=== PATIENT | female | born 1985 | race Caucasian/White ===

== ENCOUNTER 2020-03-19 11:16 | Inpatient (IN) | payer OTHER ==
[~2020-03-19] VITALS: Ht 172.7 cm; Wt 82.7 kg
[~2020-03-19 11:16] MED LIST: CODACE30 PO; HYDACE5 PO; HYDMOR2 PO; IBUP800 PO; Junel Fe 1.5-31 EACH PO; OXYACE5T PO; PROM25 PO; RANI150 PO
--- NOTE | 2020-03-19 11:30 | NUR ---
PT ARRIVES TO [facility] C/O SROM, CLEAR FLUID AT 1115. + NITRAZINE, LARGE AMOUNTS FO FLUID NOTED, MOVED TO ROOM 122 FOR LABOR. MARLEE BANKS UPDATED, ORDERS TO ADMIT. SO SHIVAM ON HIS WAY, PT DENIES FEELING UC'S AT THIS TIME. LABOR TEACHING DONE. PLANS EPIDURAL.
[2020-03-19 12:16] LABS: BASOPHILS ABSOLUTE AUTO 0.02 K/mm3 (0.00-0.23); BASOPHILS PERCENT AUTO 0 % (0-2); EOSINOPHILS ABSOLUTE AUTO 0.09 K/mm3 (0.00-0.68); EOSINOPHILS PERCENT AUTO 1 % (0-6); Hemoglobin 13.3 g/dL (11.5-16.0); IMMATURE GRAN ABSOLUTE AUTO 0.06 K/mm3 (0.00-0.10); IMMATURE GRAN PERCENT AUTO 1 % (0-1); LYMPHOCYTES ABSOLUTE AUTO 1.64 K/mm3 (0.84-5.20); LYMPHOCYTES PERCENT AUTO 15 % (21-46); MONOCYTES ABSOLUTE AUTO 0.65 K/mm3 (0.16-1.47); MONOCYTES PERCENT AUTO 6 % (4-13); Mean Corpuscular HGB 29.3 pg (26.0-34.0); Mean Corpuscular HGB Conc 32.4 g/dL (31.5-36.5); Mean Corpuscular Volume 90 fL (80-100); Mean Platelet Volume 10.1 fL (9.1-12.4); NEUTROPHILS ABSOLUTE AUTO 8.19 K/mm3 (1.96-9.15); NEUTROPHILS PERCENT AUTO 77 % (41-73); Platelet Count 294 K/mm3 (150-400); RDW Coefficient Variation 13.5 % (11.7-14.2); RDW Standard Deviation 44.9 fL (35.1-46.3); Red Blood Cell Count 4.54 M/mm3 (3.80-5.20); White Blood Cell Count 10.65 K/mm3 (4.00-11.30)
[2020-03-19] MEDS ORDERED: FISH OIL 1,2001 EAC4 (12:37)
[2020-03-19] MEDS ORDERED: PRENATAL TABLE1 EAC2 PO (12:37)
[2020-03-19] MEDS ORDERED: ASCO500 PO (12:38)
[2020-03-20 05:48] LABS: BASOPHILS ABSOLUTE AUTO 0.05 K/mm3 (0.00-0.23); BASOPHILS PERCENT AUTO 0 % (0-2); EOSINOPHILS ABSOLUTE AUTO 0.02 K/mm3 (0.00-0.68); EOSINOPHILS PERCENT AUTO 0 % (0-6); Hematocrit 33.7 % (33.0-51.0); Hemoglobin 10.9 g/dL (11.5-16.0); IMMATURE GRAN ABSOLUTE AUTO 0.15 K/mm3 (0.00-0.10); IMMATURE GRAN PERCENT AUTO 1 % (0-1); LYMPHOCYTES ABSOLUTE AUTO 1.28 K/mm3 (0.84-5.20); LYMPHOCYTES PERCENT AUTO 5 % (21-46); MONOCYTES ABSOLUTE AUTO 1.37 K/mm3 (0.16-1.47); MONOCYTES PERCENT AUTO 6 % (4-13); Mean Corpuscular HGB Conc 32.3 g/dL (31.5-36.5); Mean Corpuscular Volume 90 fL (80-100); Mean Platelet Volume 10.1 fL (9.1-12.4); NEUTROPHILS ABSOLUTE AUTO 20.77 K/mm3 (1.96-9.15); NEUTROPHILS PERCENT AUTO 88 % (41-73); Platelet Count 222 K/mm3 (150-400); RDW Coefficient Variation 13.6 % (11.7-14.2); RDW Standard Deviation 44.3 fL (35.1-46.3); Red Blood Cell Count 3.76 M/mm3 (3.80-5.20); White Blood Cell Count 23.64 K/mm3 (4.00-11.30)
--- NOTE | 2020-03-20 18:22 | NUR ---
ASSIST DEMONSTRATED PILLOWING AND FOR LAID BACK POSITION AND CHIN TUG FOR A WIDER LATCH BABY TO BREAST AND FEEDING WELL.
[2020-03-21 05:55] LABS: BASOPHILS ABSOLUTE AUTO 0.03 K/mm3 (0.00-0.23); BASOPHILS PERCENT AUTO 0 % (0-2); EOSINOPHILS ABSOLUTE AUTO 0.18 K/mm3 (0.00-0.68); EOSINOPHILS PERCENT AUTO 1 % (0-6); Hematocrit 34.2 % (33.0-51.0); Hemoglobin 10.9 g/dL (11.5-16.0); IMMATURE GRAN ABSOLUTE AUTO 0.07 K/mm3 (0.00-0.10); IMMATURE GRAN PERCENT AUTO 1 % (0-1); LYMPHOCYTES ABSOLUTE AUTO 2.03 K/mm3 (0.84-5.20); LYMPHOCYTES PERCENT AUTO 13 % (21-46); MONOCYTES ABSOLUTE AUTO 0.77 K/mm3 (0.16-1.47); MONOCYTES PERCENT AUTO 5 % (4-13); Mean Corpuscular HGB Conc 31.9 g/dL (31.5-36.5); Mean Corpuscular Volume 91 fL (80-100); Mean Platelet Volume 9.5 fL (9.1-12.4); NEUTROPHILS ABSOLUTE AUTO 12.14 K/mm3 (1.96-9.15); NEUTROPHILS PERCENT AUTO 80 % (41-73); Platelet Count 239 K/mm3 (150-400); RDW Coefficient Variation 13.9 % (11.7-14.2); RDW Standard Deviation 46.7 fL (35.1-46.3); Red Blood Cell Count 3.76 M/mm3 (3.80-5.20); White Blood Cell Count 15.22 K/mm3 (4.00-11.30)
--- NOTE | 2020-03-21 09:06 | NUR ---
PT REFUSED FLU VACCINE
--- NOTE | 2020-03-21 11:27 | NUR ---
DISCHARGE INSTRUCTIONS, WRITTEN AND VERBAL, GIVEN TO PATIENT AND Travis LANGLEY BY TRINH KUMAR. IV DISCONTINUED. FOLLOW UP APPOINTMENT SCHEDULED. ALL PERSONAL BELONGINGS RETURNED. PT IS DISCHARGED, DRIVEN HOME BY Travis LANGLEY.
== END 2020-03-21 11:20 | disposition home or self-care (01) | DRG 807 ==
LOC: BC 11:16 → OBS 11:16 → BC 11:17 → OBS 11:25 → BC 21:16
PROVIDERS: ADMIT Nurse Practitioner Obstetrics & Gynecology
PROC: 10E0XZZ Delivery of Products of Conception, External Approach (ICD-10-PCS; principal; 2020-03-19)
PROC: 0W8NXZZ Division of Female Perineum, External Approach (ICD-10-PCS; 2020-03-19)
PROC: 00HU33Z Insertion of Infusion Device into Spinal Canal, Percutaneous Approach (ICD-10-PCS; 2020-03-19)
PROC: 3E0R3BZ Introduction of Anesthetic Agent into Spinal Canal, Percutaneous Approach (ICD-10-PCS; 2020-03-19)
DX: O62.1 Secondary uterine inertia (principal); Z37.0 Single live birth; O76 Abnormality in fetal heart rate and rhythm complicating labor and delivery; Z3A.39 39 weeks gestation of pregnancy; Z98.890 Other specified postprocedural states
CPT/HCPCS: 36415; 51702; 85025; 85460; 86850; 86870; 86900; 86901; A9270; J0690; J1885; J2001; J2210; J2590; J2791; J3010; J7120; Q2038

== ENCOUNTER 2025-02-08 16:09 | Emergency (ER) | payer OTHER ==
[~2025-02-08] VITALS: Ht 175.3 cm; Wt 61.2 kg
[~2025-02-08 16:09] MED LIST changes: +ASCO500 PO; +FISH OIL 1,2001 EAC4; +PRENATAL TABLE1 EAC2 PO
[2025-02-08] MEDS ORDERED: Ketorolac Tromethamine 15mg Vial IV ONE (16:20)
[2025-02-08 16:48] LABS: BASOPHILS ABSOLUTE AUTO 0.02 K/mm3 (0.00-0.23); BASOPHILS PERCENT AUTO 0 % (0-2); EOSINOPHILS ABSOLUTE AUTO 0.07 K/mm3 (0.00-0.68); EOSINOPHILS PERCENT AUTO 1 % (0-6); Hematocrit 38.7 % (33.0-51.0); Hemoglobin 13.3 g/dL (11.5-16.0); IMMATURE GRAN ABSOLUTE AUTO 0.04 K/mm3 (0.00-0.10); IMMATURE GRAN PERCENT AUTO 0 % (0-1); LYMPHOCYTES ABSOLUTE AUTO 1.53 K/mm3 (0.84-5.20); LYMPHOCYTES PERCENT AUTO 11 % (21-46); MONOCYTES ABSOLUTE AUTO 0.57 K/mm3 (0.16-1.47); MONOCYTES PERCENT AUTO 4 % (4-13); Mean Corpuscular HGB Conc 34.4 g/dL (31.5-36.5); Mean Corpuscular Volume 88 fL (80-100); NEUTROPHILS ABSOLUTE AUTO 11.95 K/mm3 (1.96-9.15); NEUTROPHILS PERCENT AUTO 84 % (41-73); NRBC ABSOLUTE 0.00 K/mm3 (0.00-0.02); NRBC Auto 0.0 /100 WBC (0.0-0.2); Platelet Count 232 K/mm3 (150-400); RDW Coefficient Variation 12.2 % (11.7-14.2); RDW Standard Deviation 39.3 fL (35.1-46.3)
[2025-02-08 17:04] LABS: Alanine Aminotransfer (ALT/SGP 13.0 U/L (12-78); Albumin, Blood 4.1 g/dL (3.4-5.0); Albumin/Globulin Ratio 1.2 (0.8-1.8); Anion Gap 7.0 mmol/L (3-11); Aspartate Aminotrans (AST/SGOT 19.0 U/L (12-37); Bilirubin, Total 0.4 mg/dL (0.1-1.0); Blood Urea Nitrogen 14.0 mg/dL (8-24); CO2, Blood 24.0 mmol/L (21-32); Calcium, Blood 9.3 mg/dL (8.5-10.1); Chloride, Blood 108.0 mmol/L (98-108); Creatinine, Blood 0.61 mg/dL (0.40-1.00); Globulin, Blood 3.5 g/dL (2.2-4.0); Glucose, Blood 92.0 mg/dL (70-99); Potassium, Blood 3.4 mmol/L (3.5-5.5); Sodium, Blood 136.0 mmol/L (136-145); Total Protein, Blood 7.6 g/dL (6.4-8.2)
[2025-02-08] MEDS ORDERED: RX Prepack 2 Tabs Ondansetron ODT 4MG UD ONE (19:25)
[2025-02-08] MEDS ORDERED: MISO200 PO ×2 (19:27→20:08)
[2025-02-08] MEDS ORDERED: ONDA4 PO ×2 (19:27→20:08)
[2025-02-08 20:27] VITALS: BP 112/68
== END 2025-02-08 20:28 | disposition home or self-care (01) ==
LOC: ER 16:09
PROVIDERS: Student in an Organized Health Care Education/Training Program
DX: O03.9 Complete or unspecified spontaneous abortion without complication (principal); Z87.891 Personal history of nicotine dependence; Z88.5 Allergy status to narcotic agent
CPT/HCPCS: 76801; 80053; 83690; 85025; 86850; 86870; 86900; 86901; 96374; 99284-25; A9270; J1885